=== PATIENT | female | born 1955 | race Caucasian/White ===

== ENCOUNTER 2022-11-05 11:04 | Inpatient (IN) | payer OTHER ==
[2022-11-05] VITALS (8 sets, daily range): BP systolic 99–156; BP diastolic 47–74
[~2022-11-05] VITALS: Ht 165.1 cm; Wt 111.1 kg
[~2022-11-05 11:04] MED LIST: ASPI-1093 PO; BENA20TA PO; CLON0.1T16 PO; CLOP75TA PO; METF-349 PO; METO25TE2 PO; METO50TA20 PO; OMEP-303 PO; PIOG45TA39 PO; ROC1PM IV; SIMV40TA1 PO; [UNRECOGNIZED DRUG - CODE] PO
[2022-11-05] MEDS ORDERED: MORPHINE SULFATE 4 MG/ML SYR IVP ONE (11:30)
[2022-11-05] MEDS ORDERED: NACL 0.9% 1,000 ML IV ONE ×2 (11:30→12:50)
--- NOTE | 2022-11-05 11:51 | NUR ---
Pt bib daughter for abd pain x 2 months on wc. Pt has seen primary multiple times. Pt a/o x 4, vss, no ss of acute distress, breathing equal and unlabored, speech clear, pt has been to ct. Pt has pain on palpation at LLQ, ache, constant, worse with touch, non radiating, worse when eating. Pt has had regular bowel movements. Pt on monitor, in gown, in bed, rails up x 2. Daughter at bedside.
[2022-11-05 12:01] LABS: BASOPHILS # (AUTO) 0.1 K/uL (0.00-0.22); EOSINOPHILS # (AUTO) 0.1 K/uL (0-0.4); HEMATOCRIT 39.2 % (36-48); HEMOGLOBIN 12.7 g/dL (12.0-16.0); LYMPHOCYTES # (AUTO) 1.1 K/uL (2.5-16.5); LYMPHOCYTES % (AUTO) 17.1 % (20.5-51.1); MEAN CORPUSCULAR HEMOGLOBIN 29 pg (27-31); MEAN CORPUSCULAR HGB CONC 32 g/dL (33-37); MEAN CORPUSCULAR VOLUME 88.7 fL (80-94); MONOCYTES # (AUTO) 0.6 K/uL (0.8-1.0); MONOCYTES % (AUTO) 9.1 % (1.7-9.3); NEUTROPHILS # (AUTO) 4.8 K/uL (1.8-7.7); NEUTROPHILS % (AUTO) 71.8 % (42.2-75.2); PLATELET COUNT (AUTO) 282 K/uL (140-450); RED BLOOD CELL COUNT(AUTO) 4.42 MIL/uL (4.20-5.40); RED CELL DISTRIBUTION WIDTH 14.6 % (11.6-13.7); WHITE BLOOD COUNT (AUTO) 6.7 K/uL (4.8-10.8)
[2022-11-05 12:13] LABS: ALBUMIN 3.7 g/dL (3.4-5.0); ANION GAP 16.7 (8-16); CARBON DIOXIDE 27.5 mmol/L (21-32); CREATININE 1.4 mg/dL (0.6-1.3); POTASSIUM 5.2 mmol/L (3.5-5.1); TOTAL BILIRUBIN 0.4 mg/dL (0.0-1.0)
[2022-11-05] MEDS ORDERED: INSULIN REGULAR, HUMAN 100 UNIT in NACL 0.9% 100 ML IV ONE ×2 (12:55)
[2022-11-05] MEDS ORDERED: GLIP10TE PO (13:11)
[2022-11-05] MEDS ORDERED: MECO10005 PO (13:11)
[2022-11-05] MEDS ORDERED: TRAM50TA3 PO (13:11)
[2022-11-05] MEDS ORDERED: FERR-212 PO (13:11)
[2022-11-05] MEDS ORDERED: CYCL-711 PO (13:11)
[2022-11-05] MEDS ORDERED: CLOP75TA55 PO (13:11)
[2022-11-05] MEDS ORDERED: IBUP-2213 PO (13:11)
[2022-11-05] MEDS ORDERED: VITA-415 PO (13:11)
[2022-11-05] MEDS ORDERED: BENA20TA PO (13:11)
[2022-11-05] MEDS ORDERED: ERGO-30 PO (13:11)
[2022-11-05] MEDS ORDERED: CRAN450T5 PO (13:11)
[2022-11-05] MEDS ORDERED: INSULIN REGULAR, HUMAN 100 UNIT in NACL 0.9% 100 ML IV SCH ×4 (14:00→14:10)
[2022-11-05] MEDS ORDERED: DEXTROSE 50% 50 ML SYR IVP PRN (14:10)
[2022-11-05] MEDS ORDERED: CYCLOBENZAPRINE 10 MG TAB PO PRN (14:10)
[2022-11-05] MEDS: NACL 0.9% 1,000 ML IV SCH ×2 (14:15→19:31)
[2022-11-05] MEDS ORDERED: ONDANSETRON 4 MG/2 ML VIAL IVP PRN (14:15)
[2022-11-05] MEDS: BLOOD GLUCOSE MONITORING 1 DEV DEV FS SCH ×10 (14:28→23:15)
--- NOTE | 2022-11-05 14:29 | NUR ---
Admitting MD at bedside speaking with pt and daughter. Pt tolerating meds well. Pt on monitor.
[2022-11-05 14:33] LABS: BILIRUBIN,URINE NEGATIVE (NEGATIVE); BLOOD, URINE NEGATIVE (NEGATIVE); COLOR,URINE YELLOW (YELLOW); LEUKOCYTE ESTERASE ,URINE NEGATIVE (NEGATIVE); NITRITE, URINE NEGATIVE (NEGATIVE); UGLUCOSE 3+ (NEGATIVE)
[2022-11-05 14:44] LABS: APPEARANCE,URINE CLEAR (CLEAR)
--- NOTE | 2022-11-05 15:03 | NUR ---
Pt trans to ICU #3. Bedside report given to RN Nikita. Pt in stable condition. Daughter went to place wc in vehicle. Vss, no ss of acute distress, breathing equal and unlabored, speech clear, pt on insuline drip, tolerating well.
--- NOTE | 2022-11-05 15:10 | NUR ---
PT TRANSFERRED FROM ER. PT TO ICU BED 3. REPORT RECEIVED FROM CARLTON MCKINNEY, ALL CARES ASSUMED.
[2022-11-05 16:29] LABS: ANION GAP 18.8 (8-16); CREATININE 1.3 mg/dL (0.6-1.3); POTASSIUM 3.8 mmol/L (3.5-5.1)
[2022-11-05 16:33] LABS: PROTHROMBIN TIME 10.7 secs (10.8-13.4)
[2022-11-05 16:35] LABS: PHOSPHORUS 3.2 mg/dL (2.5-4.9)
[2022-11-05 16:44] LABS: MAGNESIUM 0.7 mg/dL (1.8-2.4)
[2022-11-05 16:58] LABS: AMYLASE 35 U/L (25-115); CHOL/HDL RATIO 3.5 (1-4.5); FREE T4 (FREE THYROXINE) 1.06 ng/dL (0.76-1.46); HDL CHOLESTEROL 42 mg/dL (40-60); LDL (CALC) 76 mg/dL (60-100); LIPASE 115 U/L (73-393); THYROID STIMULATING HORMONE 1.31 uIU/mL (0.34-3.74); TRIGLYCERIDES 149 mg/dL (30-150)
--- NOTE | 2022-11-05 17:00 | NUR ---
PATIENT HAS BEEN SCREENED AND CATEGORIZED HIGH NUTRITION RISK. PATIENT WILL BE SEEN WITHIN 1-2 DAYS OF ADMISSION. REVIEWED BY CHRISTIANO PEREZ RD
--- NOTE | 2022-11-05 17:30 | NUR ---
BGL 26, D50 GIVEN PER PROTOCOL. FOLLOW UP BGL 111. DR. RODRIGO ZAMARRIPA.
[2022-11-05] MEDS: MAG SULF 2000 MG/WATER PREMIX 50 ML IV SCH ×2 (18:10→21:40)
--- NOTE | 2022-11-05 19:12 | NUR ---
SBAR REPORT GIVEN TO YOHANNES RN, ALL CARES ENDORSED.
[2022-11-05] MEDS: DEXT 5% / NACL 0.45% 1,000 ML IV PRN (19:30)
--- NOTE | 2022-11-05 20:00 | NUR ---
RECEIVED PATIENT AWAKE ,ALERT AND ORIENTED AFEBRILE.DENIES ANY PAIN AND DISCOMFORT.ON ROOM AIR WITH O2 SAT AT94 .LUNG SOUNS ESSENTIALLY CLEAR TO AUSCULTATION.STILL ON INSULIN DRIP AT 5.3ML PER HOUR AND PROTOCOL TO FOLLOW.ABDOMEN ROUND SOFT AND NON TENDER .WITH POSITIVE BS X4 QUADS.WILL PROCEED WITH PRESENT CARE PLAN.
[2022-11-05 20:14] LABS: BARBITURATE, URINE NEGATIVE ng/ml (NEG <=200); BENZODIAZEPINE, URINE NEGATIVE ng/mL (NEG <=200); CANNABINOID, URINE NEGATIVE ng/mL (NEG <=50); COCAINE, URINE POSITIVE ng/mL (NEG <=300); PHENCYCLIDINE SCREEN,URINE NEGATIVE ng/mL (NEG <=25)
[2022-11-05 20:15] LABS: OPIATE, URINE POSITIVE ng/mL (NEG <=2000)
[2022-11-05] MEDS: METOPROLOL 25 MG TAB PO SCH (21:00)
[2022-11-05 21:09] LABS: ANION GAP 14.7 (8-16); CREATININE 1.1 mg/dL (0.6-1.3); POTASSIUM 3.7 mmol/L (3.5-5.1)
[2022-11-05] MEDS: SIMVASTATIN 40 MG TAB PO SCH (21:10)
[2022-11-05] MEDS: DOCUSATE SODIUM 100 MG GELCAP PO SCH (21:11)
[2022-11-05 21:13] LABS: MAGNESIUM 1.2 mg/dL (1.8-2.4); PHOSPHORUS 4.1 mg/dL (2.5-4.9)
[2022-11-06] VITALS (7 sets, daily range): BP systolic 106–151; BP diastolic 42–74
[2022-11-06] MEDS: BLOOD GLUCOSE MONITORING 1 DEV DEV FS SCH ×8 (00:15→20:32)
[2022-11-06] MEDS: NACL 0.9% 1,000 ML IV SCH (00:47)
[2022-11-06 00:56] LABS: ANION GAP 15.6 (8-16); CARBON DIOXIDE 24.4 mmol/L (21-32)
[2022-11-06 01:06] LABS: MAGNESIUM 1.9 mg/dL (1.8-2.4); PHOSPHORUS 4.2 mg/dL (2.5-4.9)
[2022-11-06] MEDS: DEXT 5% / NACL 0.45% 1,000 ML IV PRN (03:56)
--- NOTE | 2022-11-06 04:30 | NUR ---
ABLE TO TALKED TO DR DAILEY THAT SINCE 3 AM BLOOD SUGAR WAS 88,INSULIN DRIP WAS ALREADY SROPPED AND D5 1/2NS STILL CONTINOUSLY INFUSING AND AT 4AM ,BLOOD SUGAR WAS RECHECKED AND THE RESULT WAS 62.THIS WAREHOUSE PULLER TOLD HER THAT I GAVE 2 ORANGE JUICES WITH 3PACKETS OF SUGAR.SHE ORDERED TO D/C INSULIN DRIP ,CONTINUE D5 1/2 NS AT 200ML/HOUR AMD RECHECK BLOOD SUGAR EVERY 2 HOURS.
[2022-11-06 04:37] LABS: ANION GAP 12.4 (8-16); POTASSIUM 3.4 mmol/L (3.5-5.1)
[2022-11-06 04:56] LABS: PHOSPHORUS 2.9 mg/dL (2.5-4.9)
[2022-11-06] MEDS ORDERED: DEXT 5% / NACL 0.45% 1,000 ML IV SCH (06:15)
[2022-11-06] MEDS ORDERED: BLOOD GLUCOSE MONITORING 1 DEV DEV FS SCH (06:25)
--- NOTE | 2022-11-06 07:15 | NUR ---
RECEIVED BEDSIDE REPORT FROM CAMP ADVISOR YOHANNES RN. PT IS AWAKE, ALERT AND ORIENTED. ROOM AIR. SR ON MONITOR. PERIPHERAL IV TO LT AC 20G, RUNNING D5 1/2 NS @ 200MLS/HR. NPO. BEDREST. CONTINENT, BEDPAN IN USE. BILAT ARMS HOME CAT SCRATCHES PER PT. BED TO LOWEST POSITION, CALL LIGHT WITHIN REACH, WILL CONTINUE TO MONITOR.
--- NOTE | 2022-11-06 07:58 | NUR ---
SEEN AND EXAMINED BY DR DAILEY. ORDERED DOWNGRADE PT TO TELE. START SLIDING SCALE AND ACHS ACCU CHECK.
--- NOTE | 2022-11-06 08:30 | NUR ---
SPOKE TO REGARDING VBG DUE TO NORMAL VALUES PRIOR AND ANION GAP CLOSED X3 PHYSICIAN STATES OK TO NOT OBTAIN FURTHER VBGS.
[2022-11-06] MEDS: PANTOPRAZOLE 40 MG INJ VIAL IVP SCH (08:55)
[2022-11-06] MEDS: ECOTRIN 81 MG TABEC PO SCH (08:55)
[2022-11-06] MEDS: FERROUS SULFATE 325 MG TABEC PO SCH (08:56)
[2022-11-06] MEDS: DOCUSATE SODIUM 100 MG GELCAP PO SCH ×2 (08:56→20:32)
[2022-11-06] MEDS: CLOPIDOGREL 75 MG TAB PO SCH (08:56)
[2022-11-06] MEDS ORDERED: CLOPIDOGREL 75 MG TAB PO SCH (09:00)
[2022-11-06] MEDS: METOPROLOL 25 MG TAB PO SCH ×2 (09:36→20:36)
[2022-11-06] MEDS: BENAZEPRIL 10 MG TAB PO SCH (09:36)
[2022-11-06] MEDS: INSULIN LANTUS 100 UNITS/ML 10 ML VIAL SUBQ SCH (09:38)
[2022-11-06] MEDS ORDERED: POTASSIUM CHLORIDE 10 MEQ TABER PO PRN (10:15)
[2022-11-06] MEDS: HYDROcodone/APAP 7.5/325 MG 1 TAB PO PRN ×2 (10:43→18:48)
[2022-11-06] MEDS: metFORMIN 850 MG TAB PO SCH ×2 (11:33→17:00)
[2022-11-06] MEDS: INSULIN LISPRO SLIDING SCALE 100 UNITS/ML VIAL SUBQ PRN ×3 (11:36→20:37)
--- NOTE | 2022-11-06 12:27 | NUR ---
SEEN AND EXAMINED BY DR ALVARENGA. FAMILY/DAUGHTER AT BEDSIDE. UPDATED PT INFORMATION.
--- NOTE | 2022-11-06 12:28 | NUR ---
BIOPROCESS ENGINEER AT BEDSIDE. FAMILY/DAUGHTER AT BEDSIDE.
[2022-11-06] MEDS: NYSTATIN CRE 100 MU/GM 15 GM TUBE TP SCH (12:58)
[2022-11-06] MEDS ORDERED: cefTRIAXone 2,000 MG in DEXTROSE 5% 100 ML IV SCH (13:00)
--- NOTE | 2022-11-06 14:15 | NUR ---
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 20 WITH ROCEPHIN INFUSING, NO SIGN OF DISTRESS NOTED AND WILL CONTINUE TO MONITOR PT.
--- NOTE | 2022-11-06 14:18 | NUR ---
REPORT GIVEN TO LAURA MCKINNEY FOR CONTINUITY OF CARE. PT TRANSFERRED TO [facility] ROOM 119B. VS STABLE, FAMILY/DAUGHTER ACCOMPANIED WITH PT.
--- NOTE | 2022-11-06 14:20 | NUR ---
RECEIVED REPORT FROM RNBEAU REGARDING PT
--- NOTE | 2022-11-06 15:06 | NUR ---
PATIENT STABLE,LYING ON BED.WOUND ASSESSMENT DONE.HAVING A SMALL BRUISE OVER THE LEFT FOREARM.ABDOMINAL FOLDS ARE MOIST.NO WOUND FOUND OVER THE BODY.PETECHIES ARE FOUND IN THE BOTH ARMS.[id number]
--- NOTE | 2022-11-06 15:56 | NUR ---
11/06/22 RD INITIAL ASSESSMENT COMPLETED PLEASE REFER TO NUTRITION ASSESSMENT UNDER CARE ACTIVITY FOR ESTIMATED NUTRITIONAL NEEDS. 1. CONTINUE CCHO 60 GM DIET TOLERATED 2. RECOMMEND GLUCERNA 1XDAY TO HELP INCREASE PT PO INTAKE (PROVIDES 220 KCAL AND 10 GM PROTEIN DAILY) 3. RD PROVIDED NUTRITION EDUCATION WITH HANDOUTS ON CARB COUNTING FOR DM 4. RD TO FOLLOW-UP 3-5 DAYS, MODERATE RISK REVIEWED BY CHRISTIANO PEREZ RD
--- NOTE | 2022-11-06 17:00 | NUR ---
PATIENT HAD CT ABDOMEN WITH CONTRAST ON 11/06/22.HOLDED THE DOSE OF METFORMIN PER PARAMETERS FOR 24 HOURS IT POSSIBLY INTERACT WITH CT CONTRAST.[email or web address]
--- NOTE | 2022-11-06 19:21 | NUR ---
PATIENT STABLE,VERBALLY ACTIVE.ENDORSED TO BRICK CLEANER NURSE.
--- NOTE | 2022-11-06 20:37 | NUR ---
SCHEDULED GLUCOSE CHECK COMPLETE, BLOOD GLUCOSE LEVEL OF 308, 8 UNITS OF HUMALOG ADMINISTERED. PATIENT IS STABLE WITH NO COMPLAINTS OF PAIN, AND NO SIGNS OF DISTRESS, WILL CONTINUE TO MONITOR.
[2022-11-06] MEDS: SIMVASTATIN 40 MG TAB PO SCH (20:38)
[2022-11-07] VITALS: BP 143/54
[2022-11-07] MEDS: NYSTATIN CRE 100 MU/GM 15 GM TUBE TP SCH ×2 (01:43→13:02)
--- NOTE | 2022-11-07 02:14 | NUR ---
PATIENT ASLEEP LAYING SUPINE, NO SIGNS OR SYMPTOMS OF DISTRESS NOTED. NOTICEABLE CHEST RISE AND FALL. WILL CONTINUE TO MONITOR.
[2022-11-07 04:00] VITALS: BP 152/70
[2022-11-07] MEDS: HYDROcodone/APAP 7.5/325 MG 1 TAB PO PRN ×2 (06:09→11:26)
[2022-11-07] MEDS: INSULIN LISPRO SLIDING SCALE 100 UNITS/ML VIAL SUBQ PRN ×4 (06:09→20:48)
[2022-11-07] MEDS: BLOOD GLUCOSE MONITORING 1 DEV DEV FS SCH ×4 (06:09→20:45)
--- NOTE | 2022-11-07 07:29 | NUR ---
GOT REPORT FROM THE NIGHT NURSE, PT SLEEPING , NO SOB [id number]
[2022-11-07 08:00] VITALS: BP 142/65
[2022-11-07] MEDS: PANTOPRAZOLE 40 MG INJ VIAL IVP SCH (08:40)
[2022-11-07] MEDS: CLOPIDOGREL 75 MG TAB PO SCH (08:41)
[2022-11-07] MEDS: DOCUSATE SODIUM 100 MG GELCAP PO SCH ×2 (08:41→20:39)
[2022-11-07] MEDS: METOPROLOL 25 MG TAB PO SCH ×2 (08:41→20:40)
[2022-11-07] MEDS: FERROUS SULFATE 325 MG TABEC PO SCH (08:41)
[2022-11-07] MEDS: PIOGLITAZONE 30 MG TAB PO SCH (08:42)
[2022-11-07] MEDS: BENAZEPRIL 10 MG TAB PO SCH (08:42)
[2022-11-07] MEDS: ECOTRIN 81 MG TABEC PO SCH (08:42)
[2022-11-07] MEDS: metFORMIN 850 MG TAB PO SCH ×3 (08:48→17:40)
[2022-11-07] MEDS: INSULIN LANTUS 100 UNITS/ML 10 ML VIAL SUBQ SCH (09:00)
[2022-11-07 12:00] VITALS: BP 142/65
[2022-11-07 16:00] VITALS: BP 102/51
[2022-11-07 16:08] LABS: BASOPHILS # (AUTO) 0.1 K/uL (0.00-0.22); BASOPHILS % (AUTO) 1.1 % (0.0-2.0); EOSINOPHILS # (AUTO) 0.2 K/uL (0-0.4); EOSINOPHILS % (AUTO) 2.9 % (0.0-4.0); HEMATOCRIT 34.4 % (36-48); HEMOGLOBIN 11.3 g/dL (12.0-16.0); LYMPHOCYTES # (AUTO) 1.3 K/uL (2.5-16.5); MEAN CORPUSCULAR HEMOGLOBIN 29 pg (27-31); MEAN CORPUSCULAR HGB CONC 33 g/dL (33-37); MEAN CORPUSCULAR VOLUME 88.2 fL (80-94); MONOCYTES # (AUTO) 0.6 K/uL (0.8-1.0); MONOCYTES % (AUTO) 9.4 % (1.7-9.3); NEUTROPHILS # (AUTO) 4.2 K/uL (1.8-7.7); NEUTROPHILS % (AUTO) 66.6 % (42.2-75.2); PLATELET COUNT (AUTO) 224 K/uL (140-450); RED CELL DISTRIBUTION WIDTH 14.7 % (11.6-13.7); WHITE BLOOD COUNT (AUTO) 6.3 K/uL (4.8-10.8)
[2022-11-07 16:54] LABS: ANION GAP 13.7 (8-16); CARBON DIOXIDE 27.7 mmol/L (21-32); CREATININE 1.1 mg/dL (0.6-1.3); POTASSIUM 4.4 mmol/L (3.5-5.1)
[2022-11-07 20:00] VITALS: BP 139/70
--- NOTE | 2022-11-07 20:39 | NUR ---
ALL 2100 SCHEDULED DUE MEDICATIONS ADMINISTERED. PATIENT AWAKE ALERT ORIENTED IN BED RESTING COMFORTABLY. ON ROOM AIR. NO COMPLAINTS OF PAIN AT THIS TIME. CALL LIGHT ON EASY REACH. SAFETY MEASURES IN PLACE. ENCOURAGED PATIENT TO USE CALL LIGHT FOR ASSISTANCE WITH UNDERSTA Addendum: 11/07/22 at 2133 by Nataly Morejon RN RN ENCOURAGED PATIENT TO USE CALL LIGHT FOR ASSISTANCE WITH UNDERSTANDING.
[2022-11-07] MEDS: SIMVASTATIN 40 MG TAB PO SCH (20:40)
--- NOTE | 2022-11-07 20:45 | NUR ---
CHECKED BLOOD SUGAR WAS 339. ADMINISTERED HUMALOG INSULIN ORDERED PER SLIDING SCALE.
[2022-11-08] VITALS: BP 131/59
[2022-11-08] MEDS: NYSTATIN CRE 100 MU/GM 15 GM TUBE TP SCH ×2 (01:00→13:19)
[2022-11-08 04:00] VITALS: BP 139/47
--- NOTE | 2022-11-08 04:15 | NUR ---
ROUNDED PATIENT, PT SLEEPING, OBSERVED CHEST RISE AND FALL SYMMETRICALLY. CALL LIGHT IN REACH.
[2022-11-08] MEDS: INSULIN LISPRO SLIDING SCALE 100 UNITS/ML VIAL SUBQ PRN ×4 (06:33→20:51)
[2022-11-08] MEDS: BLOOD GLUCOSE MONITORING 1 DEV DEV FS SCH ×4 (06:33→20:50)
--- NOTE | 2022-11-08 06:33 | NUR ---
BLOOD SUGAR CHECKED WAS 209, ADMINISTERED HUMALOG INSULIN ORDERED PER SLIDING SCALE.
--- NOTE | 2022-11-08 07:36 | NUR ---
BEDSIDE ENDORSEMENT GIVEN TO DAY SHIFT NURSE AMBER FOR CONTINUITY OF CARE. PATIENT STABLE.
[2022-11-08 08:00] VITALS: BP 116/58
[2022-11-08] MEDS: metFORMIN 850 MG TAB PO SCH ×3 (08:00→17:04)
--- NOTE | 2022-11-08 08:00 | NUR ---
HELD METFORMIN DUE TO RECENT CT SCAN WITH CONTRAST ADMINISTRATION. PER PHARMACY DR. YARBROUGH MUST CLEAR PT WITH NEW BMP PRIOR TO RESTARTING. NEW BMP ORDERED.
[2022-11-08] MEDS: HYDROcodone/APAP 7.5/325 MG 1 TAB PO PRN ×2 (09:17→16:20)
--- NOTE | 2022-11-08 09:17 | NUR ---
MEDICATED PT WITH PRN NORCO FOR HEADACHE PAIN 04/27.
[2022-11-08] MEDS: PANTOPRAZOLE 40 MG INJ VIAL IVP SCH (09:18)
[2022-11-08] MEDS: FERROUS SULFATE 325 MG TABEC PO SCH (09:18)
[2022-11-08] MEDS: ECOTRIN 81 MG TABEC PO SCH (09:20)
[2022-11-08] MEDS: BENAZEPRIL 10 MG TAB PO SCH (09:20)
[2022-11-08] MEDS: METOPROLOL 25 MG TAB PO SCH ×2 (09:20→20:30)
[2022-11-08] MEDS: PIOGLITAZONE 30 MG TAB PO SCH (09:20)
[2022-11-08] MEDS: DOCUSATE SODIUM 100 MG GELCAP PO SCH ×2 (09:21→20:31)
[2022-11-08] MEDS: INSULIN LANTUS 100 UNITS/ML 10 ML VIAL SUBQ SCH (09:29)
[2022-11-08 09:41] LABS: ANION GAP 13.6 (8-16); CARBON DIOXIDE 28.4 mmol/L (21-32)
[2022-11-08 09:46] LABS: BASOPHILS # (AUTO) 0.2 K/uL (0.00-0.22); BASOPHILS % (AUTO) 2.4 % (0.0-2.0); EOSINOPHILS # (AUTO) 0.2 K/uL (0-0.4); EOSINOPHILS % (AUTO) 3.2 % (0.0-4.0); HEMATOCRIT 35.9 % (36-48); HEMOGLOBIN 11.7 g/dL (12.0-16.0); LYMPHOCYTES # (AUTO) 1.2 K/uL (2.5-16.5); LYMPHOCYTES % (AUTO) 18.4 % (20.5-51.1); MEAN CORPUSCULAR HEMOGLOBIN 28 pg (27-31); MEAN CORPUSCULAR HGB CONC 33 g/dL (33-37); MEAN CORPUSCULAR VOLUME 87.4 fL (80-94); MONOCYTES # (AUTO) 0.5 K/uL (0.8-1.0); NEUTROPHILS # (AUTO) 4.6 K/uL (1.8-7.7); PLATELET COUNT (AUTO) 232 K/uL (140-450); RED BLOOD CELL COUNT(AUTO) 4.11 MIL/uL (4.20-5.40); RED CELL DISTRIBUTION WIDTH 14.6 % (11.6-13.7); WHITE BLOOD COUNT (AUTO) 6.7 K/uL (4.8-10.8)
--- NOTE | 2022-11-08 10:29 | NUR ---
NOTIFIED DR. YARBROUGH OF NEW BMP RESULTS, METFORMIN RESTARTED.
[2022-11-08 12:00] VITALS: BP 148/58
[2022-11-08 16:00] VITALS: BP 124/49
--- NOTE | 2022-11-08 16:20 | NUR ---
MEDICATED WITH PRN NORCO FOR HEADACHE 7/10 PAIN.
--- NOTE | 2022-11-08 17:57 | NUR ---
RECEIVED CALL FROM DR. DOUGLAS AND READ HIM THE CT W/ CONTRAST RESULTS. PER THE , HE WILL PERFORM A DIAGNOSTIC ENDOSCOPY. PT TO BE NPO AT 2200, WITH CONSENT FORM SIGNED.
--- NOTE | 2022-11-08 18:00 | NUR ---
SPOKE TO PT AND DAUGHTER KOLE REGARDING THE EGD IN THE AM, PER PT AND DAUGHTER REQUEST, THEY WISHED TO HAVE DAUGHTER KOLE ON THE PHONE WHEN DR. STEEL COMES TO EXPLAIN PROCEDURE IN THE MORNING. PT STATED SHE WILL JESSIKA THE CONSENT IN THE MORNING.
--- NOTE | 2022-11-08 19:20 | NUR ---
ENDORSED PT TO NIGHTSHIFT NURSE CASSIE FOR CONTINUITY OF CARE. PT IN STABLE CONDITION.
[2022-11-08 20:00] VITALS: BP 156/79
[2022-11-08] MEDS: SIMVASTATIN 40 MG TAB PO SCH (20:22)
[2022-11-08] MEDS: ACETAMINOPHEN 325 MG TAB PO PRN (20:30)
--- NOTE | 2022-11-08 20:30 | NUR ---
SCHEDULED DUE MEDICATIONS ADMINISTERED.
--- NOTE | 2022-11-08 22:00 | NUR ---
PATIENT AWAKE, ALERT VERBALLY RESPONSIVE. NO SOB NOTED ON ROOM AIR. SAFETY MEASURES IN PLACE. REMINDED PATIENT TO BE NPO AND ACKNOWLEDGE. CALL LIGHT IN REACH.
[2022-11-08] MEDS ORDERED: MAG SULF 2000 MG/WATER PREMIX 50 ML IV PRN (22:05)
[2022-11-09] MEDS: MAG SULF 2000 MG/WATER PREMIX 50 ML IV PRN ×2 (00:35→00:59)
[2022-11-09] MEDS: NYSTATIN CRE 100 MU/GM 15 GM TUBE TP SCH ×2 (01:09→16:00)
[2022-11-09 04:00] VITALS: BP 152/60
[2022-11-09] MEDS: BLOOD GLUCOSE MONITORING 1 DEV DEV FS SCH ×4 (06:36→20:38)
--- NOTE | 2022-11-09 06:36 | NUR ---
CHECKED BLOOD SUGAR WAS 219 , HUMALOG INSULIN GIVEN PER SLIDING SCALE.
[2022-11-09] MEDS: INSULIN LISPRO SLIDING SCALE 100 UNITS/ML VIAL SUBQ PRN ×4 (06:37→20:41)
--- NOTE | 2022-11-09 06:47 | NUR ---
PRE OP CHECKLIST DONE FOR EGD TODAY.
[2022-11-09] MEDS ORDERED: diphenhydrAMINE 50 MG/ML VIAL ONE (07:08)
[2022-11-09] MEDS ORDERED: MIDAZOLAM 5 MG/5 ML VIAL ONE (07:08)
[2022-11-09] MEDS ORDERED: fentaNYL citrate 0.05 MG/ML VIAL ONE (07:08)
--- NOTE | 2022-11-09 07:22 | NUR ---
BEDSIDE REPORT GIVEN TO DAY SHIFT NURSE MARIA TERESA FOR CONTINUITY OF CARE. PATIENT IN STABLE CONDITION. DAUGHTER AT BEDSIDE ANTICIPATING PT EGD TO BE DONE TODAY.
[2022-11-09 07:28] LABS: PROTHROMBIN TIME 9.5 secs (10.8-13.4)
[2022-11-09 08:00] VITALS: BP 148/72
[2022-11-09] MEDS ORDERED: MIDAZOLAM 2 MG/2 ML VIAL IVP SCH (10:20)
[2022-11-09] MEDS ORDERED: fentaNYL citrate 0.05 MG/ML VIAL IVP SCH (10:20)
[2022-11-09] MEDS: PANTOPRAZOLE 40 MG INJ VIAL IVP SCH (10:47)
[2022-11-09] MEDS: metFORMIN 850 MG TAB PO SCH ×2 (10:48→15:58)
[2022-11-09] MEDS: DOCUSATE SODIUM 100 MG GELCAP PO SCH ×2 (10:49→20:32)
[2022-11-09] MEDS: ECOTRIN 81 MG TABEC PO SCH (10:50)
[2022-11-09] MEDS: BENAZEPRIL 10 MG TAB PO SCH (10:50)
[2022-11-09] MEDS: PIOGLITAZONE 30 MG TAB PO SCH (10:50)
[2022-11-09] MEDS: FERROUS SULFATE 325 MG TABEC PO SCH (10:51)
[2022-11-09] MEDS: METOPROLOL 25 MG TAB PO SCH ×2 (10:51→20:33)
[2022-11-09] MEDS: INSULIN LANTUS 100 UNITS/ML 10 ML VIAL SUBQ SCH (10:56)
[2022-11-09 12:00] VITALS: BP 145/56
[2022-11-09] MEDS: HYDROcodone/APAP 7.5/325 MG 1 TAB PO PRN ×2 (13:29→19:37)
[2022-11-09 16:00] VITALS: BP 178/50
--- NOTE | 2022-11-09 19:46 | NUR ---
PATIENT IN BED AWAKE. COMPLAINED OF MODERATE PAIN, MEDICATED WITH NORCO PRN. NO DISTRESS NOTED ON ROOM AIR. CALL LIGHT IN REACH. WHEELS OF BED LOCKED IN LOW POSITION FOR SAFETY.
[2022-11-09 20:00] VITALS: BP 169/63
--- NOTE | 2022-11-09 20:32 | NUR ---
SCHEDULED DUE MEDICATIONS ADMINISTERED.
[2022-11-09] MEDS: SIMVASTATIN 40 MG TAB PO SCH (20:33)
[2022-11-10] VITALS: BP 138/59
[2022-11-10] MEDS: NYSTATIN CRE 100 MU/GM 15 GM TUBE TP SCH ×3 (01:08→21:38)
--- NOTE | 2022-11-10 01:13 | NUR ---
PATIENT SLEEPING. OBSERVED CHEST RISE AND FALL SYMMETRICALLY. NO S/S OF RESPIRATORY DISTRESS.
[2022-11-10 04:00] VITALS: BP 146/65
[2022-11-10] MEDS: BLOOD GLUCOSE MONITORING 1 DEV DEV FS SCH ×4 (06:39→21:34)
[2022-11-10] MEDS: INSULIN LISPRO SLIDING SCALE 100 UNITS/ML VIAL SUBQ PRN ×2 (06:39→12:09)
--- NOTE | 2022-11-10 06:39 | NUR ---
BLOOD SUGAR CHECKED WAS 212 , HUMALOG INSULIN GIVEN PER SLIDING SCALE.
--- NOTE | 2022-11-10 07:26 | NUR ---
GAVE REPORT TO AM SHIFT NURSE MARIA TERESA FOR CONTINUITY OF CARE.
[2022-11-10] MEDS: metFORMIN 850 MG TAB PO SCH ×4 (07:40→17:46)
[2022-11-10 08:00] VITALS: BP 154/78
[2022-11-10] MEDS ORDERED: ERGOCALCIFEROL 50,000 IU SGL PO SCH (09:00)
[2022-11-10] MEDS: PANTOPRAZOLE 40 MG INJ VIAL IVP SCH (09:31)
[2022-11-10] MEDS: BENAZEPRIL 10 MG TAB PO SCH (09:31)
[2022-11-10] MEDS: FERROUS SULFATE 325 MG TABEC PO SCH (09:32)
[2022-11-10] MEDS: ECOTRIN 81 MG TABEC PO SCH (09:32)
[2022-11-10] MEDS: DOCUSATE SODIUM 100 MG GELCAP PO SCH ×2 (09:32→21:32)
[2022-11-10] MEDS: METOPROLOL 25 MG TAB PO SCH ×2 (09:32→21:32)
[2022-11-10] MEDS: PIOGLITAZONE 30 MG TAB PO SCH (09:32)
[2022-11-10] MEDS: INSULIN LANTUS 100 UNITS/ML 10 ML VIAL SUBQ SCH (09:39)
[2022-11-10] MEDS: HYDROcodone/APAP 7.5/325 MG 1 TAB PO PRN (09:45)
[2022-11-10 09:50] LABS: BASOPHILS # (AUTO) 0.1 K/uL (0.00-0.22); BASOPHILS % (AUTO) 0.9 % (0.0-2.0); EOSINOPHILS # (AUTO) 0.2 K/uL (0-0.4); EOSINOPHILS % (AUTO) 3.9 % (0.0-4.0); HEMATOCRIT 36.1 % (36-48); HEMOGLOBIN 11.6 g/dL (12.0-16.0); LYMPHOCYTES # (AUTO) 1.2 K/uL (2.5-16.5); MEAN CORPUSCULAR HEMOGLOBIN 29 pg (27-31); MEAN CORPUSCULAR HGB CONC 32 g/dL (33-37); MEAN CORPUSCULAR VOLUME 89.1 fL (80-94); MONOCYTES # (AUTO) 0.5 K/uL (0.8-1.0); MONOCYTES % (AUTO) 8.9 % (1.7-9.3); NEUTROPHILS # (AUTO) 3.5 K/uL (1.8-7.7); NEUTROPHILS % (AUTO) 64.3 % (42.2-75.2); PLATELET COUNT (AUTO) 248 K/uL (140-450); RED BLOOD CELL COUNT(AUTO) 4.05 MIL/uL (4.20-5.40); RED CELL DISTRIBUTION WIDTH 14.9 % (11.6-13.7); WHITE BLOOD COUNT (AUTO) 5.5 K/uL (4.8-10.8)
[2022-11-10 10:04] LABS: ANION GAP 8.6 (8-16); CARBON DIOXIDE 29.6 mmol/L (21-32); CREATININE 1.1 mg/dL (0.6-1.3); POTASSIUM 4.2 mmol/L (3.5-5.1)
[2022-11-10 12:00] VITALS: BP 152/81
--- NOTE | 2022-11-10 12:37 | NUR ---
DC PLANNING: FAXED THE REQUEST TO [facility] SPOKE WITH SILVESTRE GONG SUP STATED STILL REVIEWING AND AWAITING FOR GI TO CONSULT AND PROVIDE DR DAILEY'S PHONE NUMBER. CM TO FOLLOW Addendum: 11/10/22 at 1718 by Laureen Camacho RN DC PLANNING: RECEIVED A CALL FROM [facility] SPOKE WITH SILVESTRE GONGHOME COMFORT ADVISOR STATED THEIR GI DR ROMERO DECLINE THE CASE. NOTIFIED DR DAILEY. [facility] Addendum: 11/10/22 at 1728 by Laureen Camacho RN DC PLANNING: CM SPOKE WITH DR DOUGLAS REGARDING THE TRANSFER TO HIGHER LEVEL OF CARE AND NOTIFIED HIM [facility] DECLINED. PER DR STEEL TO CANCEL THE TRANSFER AND CAN BE DONE OUT PT. WILL NOTIFY DR DAILEY. CM TO FOLLOW
[2022-11-10 16:00] VITALS: BP 111/63
--- NOTE | 2022-11-10 17:12 | NUR ---
11/10/22 RD FOLLOW UP COMPLETED PLEASE REFER TO NUTRITION ASSESSMENT UNDER CARE ACTIVITY FOR ESTIMATED NUTRITIONAL NEEDS. 1. RECOMMEND ADDING CCHO 60 GRAM TO DIET. 2. D/C GLUCERNA 1XDAY D/T PO INTAKE 100% ON 11/08/2022-11/09/2022 3. MONITOR GI, LAB VALUES, AND PO INTAKE. 4. RD TO FOLLOW-UP 3-5 DAYS, MODERATE RISK REVIEWED BY CHRISTIANO PEREZ RD
[2022-11-10] MEDS: POLYETHYLENE GLYCOL 17 GM/PKT PO SCH (17:46)
--- NOTE | 2022-11-10 19:25 | NUR ---
RECEIVED REPORT FROM DAY SHIFT NURSE TIN FOR CONTINUITY OF CARE. PT AWAKE IN BED. NO DISTRESS NOTED. INITIAL ASSESSMENT DONE. POC DISCUSSED. CALL LIGHT WITHIN REACH. SAFETY PRECAUTIONS IN PLACE.
[2022-11-10 20:00] VITALS: BP 130/82
[2022-11-10] MEDS: SIMVASTATIN 40 MG TAB PO SCH (21:33)
--- NOTE | 2022-11-10 21:36 | NUR ---
ADMINISTERED DUE MEDS. NO INSULIN COVERAGE FOR BS 142.
--- NOTE | 2022-11-11 01:37 | NUR ---
PATIENT STABLE VITALS SIGNS IN NORMAL LIMITS NOT COMPLAINING OF PAIN SLEEPING AT THIS TIME INTERMITTENS SUCTION
--- NOTE | 2022-11-11 03:47 | NUR ---
DID ROUNDS. PT SLEEPING. BREATHING EVEN AND UNLABORED. NO DISTRESS NOTED. SAFETY PRECAUTIONS IN PLACE.
[2022-11-11 04:00] VITALS: BP 132/62
[2022-11-11] MEDS: ACETAMINOPHEN 325 MG TAB PO PRN (04:19)
[2022-11-11 06:06] LABS: ANION GAP 11.1 (8-16); CARBON DIOXIDE 29.6 mmol/L (21-32); CREATININE 1.1 mg/dL (0.6-1.3); POTASSIUM 4.7 mmol/L (3.5-5.1)
[2022-11-11 06:11] LABS: BASOPHILS # (AUTO) 0.1 K/uL (0.00-0.22); BASOPHILS % (AUTO) 1.1 % (0.0-2.0); EOSINOPHILS # (AUTO) 0.2 K/uL (0-0.4); EOSINOPHILS % (AUTO) 3.8 % (0.0-4.0); HEMATOCRIT 33.1 % (36-48); HEMOGLOBIN 10.8 g/dL (12.0-16.0); LYMPHOCYTES # (AUTO) 1.6 K/uL (2.5-16.5); LYMPHOCYTES % (AUTO) 27.4 % (20.5-51.1); MEAN CORPUSCULAR HEMOGLOBIN 29 pg (27-31); MEAN CORPUSCULAR HGB CONC 33 g/dL (33-37); MEAN CORPUSCULAR VOLUME 88.1 fL (80-94); MONOCYTES # (AUTO) 0.7 K/uL (0.8-1.0); MONOCYTES % (AUTO) 12.5 % (1.7-9.3); NEUTROPHILS # (AUTO) 3.2 K/uL (1.8-7.7); NEUTROPHILS % (AUTO) 55.2 % (42.2-75.2); PLATELET COUNT (AUTO) 189 K/uL (140-450); RED BLOOD CELL COUNT(AUTO) 3.76 MIL/uL (4.20-5.40); RED CELL DISTRIBUTION WIDTH 14.9 % (11.6-13.7); WHITE BLOOD COUNT (AUTO) 5.8 K/uL (4.8-10.8)
[2022-11-11] MEDS: BLOOD GLUCOSE MONITORING 1 DEV DEV FS SCH (06:38)
[2022-11-11] MEDS: INSULIN LISPRO SLIDING SCALE 100 UNITS/ML VIAL SUBQ PRN (06:38)
--- NOTE | 2022-11-11 06:41 | NUR ---
BLOOD SUGAR CHECK DONE. SLIDING SCALE INSULIN ADMINISTERED. PT SLEEPING WITH NO DISTRESS NOTED. NO COMPLAINTS OF PAIN.
--- NOTE | 2022-11-11 06:46 | NUR ---
PATIENT STABLE VITALS SIGNS IN NORMAL LIMITS NOT COMPLAINING OF PAIN AT THIS TIME
--- NOTE | 2022-11-11 07:32 | NUR ---
ENDORSED PT TO DAY SHIFT NURSE ANANDA FOR CONTINUITY OF CARE. ALL NEEDS MET THROUGHOUT SHIFT. PT IS IN STABLE CONDITION.
[2022-11-11] MEDS: BENAZEPRIL 10 MG TAB PO SCH (09:16)
[2022-11-11] MEDS: PANTOPRAZOLE 40 MG INJ VIAL IVP SCH (09:17)
[2022-11-11] MEDS: DOCUSATE SODIUM 100 MG GELCAP PO SCH (09:17)
[2022-11-11] MEDS: METOPROLOL 25 MG TAB PO SCH (09:17)
[2022-11-11] MEDS: PIOGLITAZONE 30 MG TAB PO SCH (09:17)
[2022-11-11] MEDS: ECOTRIN 81 MG TABEC PO SCH (09:17)
[2022-11-11] MEDS: FERROUS SULFATE 325 MG TABEC PO SCH (09:17)
[2022-11-11] MEDS: POLYETHYLENE GLYCOL 17 GM/PKT PO SCH (09:18)
[2022-11-11 09:24] VITALS: BP 130/59
[2022-11-11] MEDS: INSULIN LANTUS 100 UNITS/ML 10 ML VIAL SUBQ SCH (09:29)
[2022-11-11] MEDS: metFORMIN 850 MG TAB PO SCH (09:35)
[2022-11-11] MEDS: HYDROcodone/APAP 7.5/325 MG 1 TAB PO PRN (10:03)
--- NOTE | 2022-11-11 11:00 | NUR ---
DISCHARGE TO HOME WITH A COPY OF DISCHARGE INSTRUCTION AND ALL BELONGINGS. ID BRACELET TAKEN OFF. INTACT 20 GAUGE INTRAVENOUS CATHETER REMOVAL FROM LEFT ARM. PATIENT HAS INFORMATION ON FOLLOW UP AND DISCHARGE MEDICATION RECONCILIATION.
[2022-11-11] MEDS ORDERED: POLY17PD46 PO (11:33)
[2022-11-11] MEDS ORDERED: HYDR-5080 PO (11:34)
== END 2022-11-11 12:05 | disposition home or self-care (01) | DRG 637 ==
LOC: MED 11:04 → MIC 14:15 → MTU 11-06 14:25
PROC: 0DJ08ZZ Inspection of Upper Intestinal Tract, Via Natural or Artificial Opening Endoscopic (ICD-10-PCS; principal; 2022-11-09 07:30)
DX: E11.10 Type 2 diabetes mellitus with ketoacidosis without coma (principal); K55.059 Acute (reversible) ischemia of intestine, part and extent unspecified; N17.0 Acute kidney failure with tubular necrosis; N39.0 Urinary tract infection, site not specified; E86.0 Dehydration; K57.90 Diverticulosis of intestine, part unspecified, without perforation or abscess without bleeding; E87.5 Hyperkalemia; I10 Essential (primary) hypertension; I25.10 Atherosclerotic heart disease of native coronary artery without angina pectoris; K21.9 Gastro-esophageal reflux disease without esophagitis; E78.5 Hyperlipidemia, unspecified; K29.70 Gastritis, unspecified, without bleeding; E78.00 Pure hypercholesterolemia, unspecified; K80.20 Calculus of gallbladder without cholecystitis without obstruction; I27.20 Pulmonary hypertension, unspecified; Z20.822 Contact with and (suspected) exposure to COVID-19; Z79.4 Long term (current) use of insulin; Z79.82 Long term (current) use of aspirin; Z80.3 Family history of malignant neoplasm of breast; Z82.49 Family history of ischemic heart disease and other diseases of the circulatory system; Z90.49 Acquired absence of other specified parts of digestive tract; Z95.5 Presence of coronary angioplasty implant and graft; Z88.8 Allergy status to other drugs, medicaments and biological substances; Z79.1 Long term (current) use of non-steroidal anti-inflammatories (NSAID); Z79.899 Other long term (current) drug therapy
CPT/HCPCS: 36415; 36600; 71045; 80048; 80053; 80305; 81003; 82140; 82150; 82803; 82948; 83036; 83605; 83690; 83735; 83880; 83930; 84100; 84439; 84443; 84484; 85025; 85610; 85730; 87040; 87081; 87086; 93005; 96361; 96374; 99291; C9113; J0696; J1200; J1815; J2250; J2270; J2405; J3010; J3475; J7030; J7060; Q9967

== ENCOUNTER 2023-09-06 13:14 | Inpatient (IN) | payer OTHER ==
[~2023-09-06] VITALS: Ht 162.6 cm; Wt 108.9 kg
[~2023-09-06 13:14] MED LIST changes: -CLON0.1T16 PO; -CLOP75TA PO; +CRAN450T5 PO; +CYCL-711 PO; +ERGO-30 PO; +FERR-212 PO; +GLIP10TE PO; +HYDR-5080 PO; +MECO10005 PO; -METO50TA20 PO; +POLY17PD46 PO; -ROC1PM IV; +SIMV-370 PO; -SIMV40TA1 PO; +TRAM50TA3 PO; +VITA-415 PO; -[UNRECOGNIZED DRUG - CODE] PO
[2023-09-06 13:22] VITALS: BP 117/52; PULSE 80; RESP 20; TEMP 98.1; O2SAT 95
[2023-09-06] MEDS ORDERED: NACL 0.9% 1,000 ML IV SCH ×2 (14:10→14:45)
[2023-09-06] MEDS ORDERED: cefTRIAXone 1,000 MG in DEXT 5% MINI-BAG PLUS 50 ML IV ONE (14:10)
[2023-09-06 14:28] LABS: BASOPHILS % (AUTO) 0.7 % (0.0-2.0); EOSINOPHILS % (AUTO) 0.3 % (0.0-4.0); HEMATOCRIT 33.2 % (36-48); HEMOGLOBIN 10.7 g/dL (12.0-16.0); LYMPHOCYTES # (AUTO) 0.4 K/uL (2.5-16.5); LYMPHOCYTES % (AUTO) 10.2 % (20.5-51.1); MEAN CORPUSCULAR HEMOGLOBIN 29 pg (27-31); MEAN CORPUSCULAR HGB CONC 32 g/dL (33-37); MEAN CORPUSCULAR VOLUME 89.3 fL (80-94); MONOCYTES # (AUTO) 0.4 K/uL (0.8-1.0); MONOCYTES % (AUTO) 9.8 % (1.7-9.3); NEUTROPHILS # (AUTO) 3.4 K/uL (1.8-7.7); PLATELET COUNT (AUTO) 78 K/uL (140-450); RED BLOOD CELL COUNT(AUTO) 3.72 MIL/uL (4.20-5.40); WHITE BLOOD COUNT (AUTO) 4.3 K/uL (4.8-10.8)
[2023-09-06] MEDS ORDERED: cefTRIAXone 1,000 MG VIAL ONE (14:32)
[2023-09-06 14:48] LABS: ALBUMIN 2.9 g/dL (3.4-5.0); ANION GAP 15.5 (8-16); CALCIUM 8.5 mg/dL (8.5-10.1); CARBON DIOXIDE 23.4 mmol/L (21-32); CREATININE 1.6 mg/dL (0.6-1.3); POTASSIUM 4.9 mmol/L (3.5-5.1); TOTAL BILIRUBIN 0.2 mg/dL (0.0-1.0); TOTAL PROTEIN, SERUM 7.1 g/dL (6.4-8.2)
[2023-09-06 15:46] LABS: LACTIC ACID 1.5 mmol/L (0.4-2.0)
[2023-09-06 15:55] LABS: APPEARANCE,URINE HAZY (CLEAR); BILIRUBIN,URINE NEGATIVE (NEGATIVE); BLOOD, URINE 1+ (NEGATIVE); COLOR,URINE YELLOW (YELLOW); LEUKOCYTE ESTERASE ,URINE 1+ (NEGATIVE); NITRITE, URINE NEGATIVE (NEGATIVE); PROTEIN,URINE 2+ (NEGATIVE); UGLUCOSE NEGATIVE (NEGATIVE); UROBILINOGEN,URINE 0.2 EU/dL (0.2 - 1)
[2023-09-06 16:08] LABS: BACTERIA,URINE 3+ /HPF (None Seen); MUCUS,URINE 1+ /LPF (None Seen); RBC,URINE 20-50 /HPF (0-5); SQUAMOUS EPITHELIAL CELL,UR 4-10 (MOD) /LPF (0-3 (FEW)); TRICHOMONAS,URINE None Seen /HPF (None Seen); WBC,URINE 16-25 (MOD) /HPF (0-5); YEAST,URINE None Seen /HPF (None Seen)
[2023-09-06] MEDS ORDERED: MORPHINE SULFATE 4 MG/ML SYR IVP ONE (16:15)
[2023-09-06] MEDS ORDERED: ONDANSETRON 4 MG/2 ML VIAL IVP ONE (16:25)
[2023-09-06] MEDS: NACL 0.9% 1,000 ML IV SCH (19:00)
[2023-09-06] MEDS ORDERED: SEMA3TAB4 PO (19:28)
[2023-09-06] MEDS: PIPERACILLIN/TAZOBACTAM 3.375 GM in DEXTROSE 5% 50 ML IV SCH (21:00)
[2023-09-06] MEDS: INSULIN LISPRO SLIDING SCALE 100 UNITS/ML VIAL SUBQ SCH (21:00)
[2023-09-06] MEDS ORDERED: PIPERACILLIN/TAZOBACTAM 3.375 GM VIAL IV ONE (21:22)
[2023-09-06 22:15] VITALS: RESP 18; O2SAT 97
[2023-09-07] MEDS: NACL 0.9% 1,000 ML IV SCH ×2 (02:50→12:58)
[2023-09-07 04:00] VITALS: BP 122/49; PULSE 96; RESP 18; TEMP 98.6; O2SAT 97
[2023-09-07] MEDS ORDERED: PIPERACILLIN/TAZOBACTAM 3.375 GM VIAL IV ONE (05:27)
[2023-09-07] MEDS: PIPERACILLIN/TAZOBACTAM 3.375 GM in DEXTROSE 5% 50 ML IV SCH ×3 (06:04→21:48)
[2023-09-07] MEDS: INSULIN LISPRO SLIDING SCALE 100 UNITS/ML VIAL SUBQ SCH ×4 (07:30→21:00)
[2023-09-07] MEDS ORDERED: DEXTROSE 50% 50 ML SYR IVP PRN (07:40)
[2023-09-07 08:00] VITALS: BP 135/63; PULSE 89; RESP 18; TEMP 97.3; O2SAT 94
[2023-09-07] MEDS: BLOOD GLUCOSE MONITORING 1 DEV DEV FS SCH ×4 (08:09→21:46)
[2023-09-07 16:17] VITALS: BP 133/50; PULSE 72; RESP 18; TEMP 99.6; O2SAT 92
[2023-09-07 16:35] VITALS: PULSE 77
[2023-09-07] MEDS ORDERED: HYDROcodone/APAP 5/325 MG 1 TAB TAB PO PRN (17:00)
[2023-09-07 20:00] VITALS: BP 132/61; PULSE 108; PULSE 76; PULSE 79; RESP 18; TEMP 98.1; O2SAT 97
[2023-09-07] MEDS: CYCLOBENZAPRINE 10 MG TAB PO SCH (21:50)
[2023-09-07] MEDS: METOPROLOL 25 MG TAB PO SCH (21:50)
[2023-09-07] MEDS: traMADol 50 MG TAB PO PRN (21:52)
[2023-09-08] VITALS (7 sets, daily range): BP systolic 113–142; BP diastolic 61–91; PULSE 61–109; RESP 17–20; TEMP 97.7–98.4; O2SAT 93–98
[2023-09-08 00:40] LABS: AMPHETAMINE, URINE NEGATIVE ng/ml (NEG <=1000); BARBITURATE, URINE NEGATIVE ng/ml (NEG <=200); BENZODIAZEPINE, URINE NEGATIVE ng/mL (NEG <=200); CANNABINOID, URINE NEGATIVE ng/mL (NEG <=50); COCAINE, URINE POSITIVE ng/mL (NEG <=300); OPIATE, URINE POSITIVE ng/mL (NEG <=2000); PHENCYCLIDINE SCREEN,URINE NEGATIVE ng/mL (NEG <=25)
[2023-09-08] MEDS: NACL 0.9% 1,000 ML IV SCH ×2 (06:27→09:52)
[2023-09-08] MEDS: PIPERACILLIN/TAZOBACTAM 3.375 GM in DEXTROSE 5% 50 ML IV SCH ×2 (06:28→12:15)
[2023-09-08] MEDS: CYCLOBENZAPRINE 10 MG TAB PO SCH ×3 (06:29→21:17)
[2023-09-08] MEDS: BLOOD GLUCOSE MONITORING 1 DEV DEV FS SCH ×4 (06:38→21:11)
[2023-09-08 07:26] LABS: BASOPHILS % (AUTO) 0.9 % (0.0-2.0); EOSINOPHILS % (AUTO) 0.5 % (0.0-4.0); HEMATOCRIT 30.4 % (36-48); HEMOGLOBIN 9.9 g/dL (12.0-16.0); LYMPHOCYTES # (AUTO) 1.5 K/uL (2.5-16.5); LYMPHOCYTES % (AUTO) 43.6 % (20.5-51.1); MEAN CORPUSCULAR HEMOGLOBIN 29 pg (27-31); MEAN CORPUSCULAR HGB CONC 33 g/dL (33-37); MEAN CORPUSCULAR VOLUME 89.2 fL (80-94); MONOCYTES # (AUTO) 0.6 K/uL (0.8-1.0); MONOCYTES % (AUTO) 17.5 % (1.7-9.3); NEUTROPHILS # (AUTO) 1.3 K/uL (1.8-7.7); NEUTROPHILS % (AUTO) 37.5 % (42.2-75.2); PLATELET COUNT (AUTO) 21 K/uL (140-450); RED BLOOD CELL COUNT(AUTO) 3.41 MIL/uL (4.20-5.40); RED CELL DISTRIBUTION WIDTH 16.3 % (11.6-13.7); WHITE BLOOD COUNT (AUTO) 3.4 K/uL (4.8-10.8)
[2023-09-08 07:34] LABS: ANION GAP 15.4 (8-16); CARBON DIOXIDE 23.2 mmol/L (21-32); CREATININE 1.4 mg/dL (0.6-1.3); POTASSIUM 4.6 mmol/L (3.5-5.1)
[2023-09-08] MEDS ORDERED: ECOTRIN 81 MG TABEC PO SCH (09:00)
[2023-09-08] MEDS ORDERED: ASPIRIN 81 MG TAB.CHEW PO SCH (09:00)
[2023-09-08] MEDS: METOPROLOL 25 MG TAB PO SCH ×2 (09:44→21:18)
[2023-09-08] MEDS: ATORVASTATIN 20 MG TAB PO SCH (09:44)
[2023-09-08] MEDS: traMADol 50 MG TAB PO PRN (09:45)
[2023-09-08] MEDS: INSULIN LISPRO SLIDING SCALE 100 UNITS/ML VIAL SUBQ PRN (21:13)
[2023-09-09] VITALS (9 sets, daily range): BP systolic 142–158; BP diastolic 46–82; PULSE 61–86; RESP 16–18; TEMP 97.8–99.1; O2SAT 92–94
[2023-09-09] MEDS: CYCLOBENZAPRINE 10 MG TAB PO SCH ×3 (06:09→20:32)
[2023-09-09] MEDS: BLOOD GLUCOSE MONITORING 1 DEV DEV FS SCH ×4 (06:48→20:36)
[2023-09-09 07:11] LABS: BASOPHILS % (AUTO) 0.7 % (0.0-2.0); EOSINOPHILS # (AUTO) 0.1 K/uL (0-0.4); HEMATOCRIT 30.4 % (36-48); HEMOGLOBIN 9.9 g/dL (12.0-16.0); LYMPHOCYTES # (AUTO) 1.3 K/uL (2.5-16.5); LYMPHOCYTES % (AUTO) 34.5 % (20.5-51.1); MEAN CORPUSCULAR HEMOGLOBIN 29 pg (27-31); MEAN CORPUSCULAR HGB CONC 33 g/dL (33-37); MEAN CORPUSCULAR VOLUME 88.8 fL (80-94); MONOCYTES # (AUTO) 0.5 K/uL (0.8-1.0); MONOCYTES % (AUTO) 13.8 % (1.7-9.3); NEUTROPHILS # (AUTO) 1.8 K/uL (1.8-7.7); PLATELET COUNT (AUTO) 31 K/uL (140-450); RED BLOOD CELL COUNT(AUTO) 3.42 MIL/uL (4.20-5.40); RED CELL DISTRIBUTION WIDTH 16.1 % (11.6-13.7); WHITE BLOOD COUNT (AUTO) 3.7 K/uL (4.8-10.8)
[2023-09-09 07:20] LABS: ANION GAP 13.7 (8-16); CALCIUM 7.6 mg/dL (8.5-10.1); CARBON DIOXIDE 22.8 mmol/L (21-32); CREATININE 1.1 mg/dL (0.6-1.3); POTASSIUM 4.5 mmol/L (3.5-5.1)
[2023-09-09] MEDS: ATORVASTATIN 20 MG TAB PO SCH (08:13)
[2023-09-09] MEDS: METOPROLOL 25 MG TAB PO SCH ×2 (08:14→20:32)
[2023-09-09] MEDS: lisinopriL 10 MG TAB PO SCH (08:17)
[2023-09-09] MEDS: traMADol 50 MG TAB PO PRN ×2 (09:43→18:51)
[2023-09-09] MEDS: INSULIN LISPRO SLIDING SCALE 100 UNITS/ML VIAL SUBQ PRN (11:18)
[2023-09-10] MEDS: CYCLOBENZAPRINE 10 MG TAB PO SCH ×2 (05:13→12:27)
[2023-09-10] MEDS: BLOOD GLUCOSE MONITORING 1 DEV DEV FS SCH ×2 (06:36→11:39)
[2023-09-10 07:09] LABS: BASOPHILS % (AUTO) 0.7 % (0.0-2.0); EOSINOPHILS % (AUTO) 0.3 % (0.0-4.0); HEMATOCRIT 30.3 % (36-48); HEMOGLOBIN 9.8 g/dL (12.0-16.0); LYMPHOCYTES # (AUTO) 0.9 K/uL (2.5-16.5); LYMPHOCYTES % (AUTO) 23.8 % (20.5-51.1); MEAN CORPUSCULAR HEMOGLOBIN 29 pg (27-31); MEAN CORPUSCULAR HGB CONC 32 g/dL (33-37); MEAN CORPUSCULAR VOLUME 88.6 fL (80-94); MONOCYTES # (AUTO) 0.5 K/uL (0.8-1.0); MONOCYTES % (AUTO) 13.5 % (1.7-9.3); NEUTROPHILS # (AUTO) 2.2 K/uL (1.8-7.7); NEUTROPHILS % (AUTO) 61.7 % (42.2-75.2); PLATELET COUNT (AUTO) 44 K/uL (140-450); RED BLOOD CELL COUNT(AUTO) 3.42 MIL/uL (4.20-5.40); RED CELL DISTRIBUTION WIDTH 16.1 % (11.6-13.7); WHITE BLOOD COUNT (AUTO) 3.6 K/uL (4.8-10.8)
[2023-09-10 07:27] LABS: ANION GAP 14.6 (8-16); CALCIUM 8.2 mg/dL (8.5-10.1); CARBON DIOXIDE 22.8 mmol/L (21-32); CREATININE 1.1 mg/dL (0.6-1.3); POTASSIUM 4.4 mmol/L (3.5-5.1)
[2023-09-10 08:00] VITALS: BP 129/49; PULSE 82; RESP 18; TEMP 97.1; O2SAT 94
[2023-09-10] MEDS: METOPROLOL 25 MG TAB PO SCH (10:07)
[2023-09-10] MEDS: lisinopriL 10 MG TAB PO SCH (10:08)
[2023-09-10] MEDS: ATORVASTATIN 20 MG TAB PO SCH (10:08)
[2023-09-10] MEDS ORDERED: CEPH250C16 PO (12:03)
[2023-09-10] MEDS: INSULIN LISPRO SLIDING SCALE 100 UNITS/ML VIAL SUBQ PRN (12:28)
== END 2023-09-10 14:40 | disposition home or self-care (01) | DRG 315 ==
LOC: MED 13:14 → MMU 16:55 → MTU 21:52
PROVIDERS: ADMIT Student in an Organized Health Care Education/Training Program; ATTEND Student in an Organized Health Care Education/Training Program
DX: I95.89 Other hypotension (principal); K55.1 Chronic vascular disorders of intestine; N17.9 Acute kidney failure, unspecified; N39.0 Urinary tract infection, site not specified; E11.9 Type 2 diabetes mellitus without complications; I10 Essential (primary) hypertension; Z20.822 Contact with and (suspected) exposure to COVID-19; I25.10 Atherosclerotic heart disease of native coronary artery without angina pectoris; F14.10 Cocaine abuse, uncomplicated; D69.6 Thrombocytopenia, unspecified; B96.1 Klebsiella pneumoniae [K. pneumoniae] as the cause of diseases classified elsewhere; Z88.8 Allergy status to other drugs, medicaments and biological substances; Z79.899 Other long term (current) drug therapy
CPT/HCPCS: 36415; 71045; 80048; 80053; 80305; 81001; 82948; 83605; 83880; 84484; 85025; 87040; 87081; 87086; 93005; 96361; 96365; 96375; 97163-GP; 97530; 99285; J0696; J1815; J2270; J2405; J2543; J7060; Q0092